=== PATIENT | female | born 1995 | race American Indian/Alaskan Native ===

== ENCOUNTER 2020-04-22 18:47 | Inpatient (IN) | payer MEDICAID, OTHER ==
[2020-04-22] MEDS ORDERED: OXYTOCIN 10 UNIT/1 ML INJ IM PRN (21:46)
[2020-04-22] MEDS ORDERED: METHYLERGONOVINE MALEATE 0.2 MG/ML VIAL IM PRN (21:46)
[2020-04-22] MEDS ORDERED: LIDOCAINE (2%) 20 MG/1 ML VIAL 20 ML MDV INFILTRATI ONE (21:46)
[2020-04-22] MEDS ORDERED: MINERAL OIL 30 ML ORAL LIQD PO PRN (21:46)
[2020-04-22] MEDS ORDERED: TERBUTALINE 1 MG/1 ML INJ SUB-Q PRN (21:46)
[2020-04-22] MEDS ORDERED: BUTORPHANOL 2 MG/1 ML INJ IV PRN (21:46)
[2020-04-22] MEDS ORDERED: ONDANSETRON 4 MG/2 ML INJ IV PRN (21:46)
[2020-04-22] MEDS ORDERED: NALOXONE 0.4 MG/1 ML INJ IV PRN (21:46)
[2020-04-22] MEDS ORDERED: ePHEDrine SULFATE 50 MG/1 ML INJ IV PRN (21:46)
[2020-04-22] MEDS ORDERED: PROMETHAZINE 25 MG TAB PO PRN (21:46)
[2020-04-22] MEDS ORDERED: fentaNYL 100 MCG/2 ML INJ IV PRN (21:46)
[2020-04-22 21:57] LABS: Hematocrit 33.1 % (30.3-42.9); Mean Corpuscular HGB Conc 33 % (30-34); Mean Corpuscular Volume 87 fl (79-97); Platelet Count 294 K/mm3 (140-440); Red Blood Count 3.82 M/mm3 (3.65-5.03); Red Cell Distribution Width 19.1 % (13.2-15.2)
[2020-04-22] MEDS ORDERED: OXYTOCIN DRIP 30 UNITS/500 ML BAG IV SCH (22:00)
[2020-04-22] MEDS ORDERED: LACTATED RINGERS 1,000 ML IV SCH (22:00)
[2020-04-23] MEDS: BUTORPHANOL 2 MG/1 ML INJ IV PRN ×2 (00:52→04:53)
--- NOTE | 2020-04-23 04:26 | History and Physical Report ---
History of Present Illness Date of examination: 04/23/20 Date of admission: 04/22/20 21:46 Chief complaint: Contractions History of present illness: Pt is a 24 yo at 39w3d EGA who presents reporting regular uterine contractions. She reports positive movement and denies LOF or vaginal bleeding. She has received care with [facility] since 11 weeks EGA. Her course has been complicated by iron-deficiency anemia, resolved with PO Fe. 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 She is GBS negative. Past History Past Medical History: no pertinent history Past Surgical History: no surgical history Family/Genetic History: hypertension, stroke, cancer Social history: no significant social history - Obstetrical History Expected Date of Delivery: 04/27/20 Actual Gestation: 39 Week(s) 3 Day(s) : 2 Para: 1 Hx # Term Pregnancies: 1 Number of Living Children: 1 Medications and Allergies Allergies Allergy/AdvReac Type Severity Reaction Status Date / Time No Known Allergies Allergy Verified 02/28/14 14:16 Active Meds: Active Medications Butorphanol Tartrate (Stadol) 1 mg IV Q2H PRN PRN Reason: Pain, Moderate(4-6) LABOR PAIN Butorphanol Tartrate (Stadol) 2 mg IV Q2H PRN PRN Reason: Pain , Severe (7-10) Last Admin: 04/23/20 00:52 Dose: 2 mg Documented by: Ephedrine Sulfate (Ephedrine Sulfate) 10 mg IV Q2M PRN PRN Reason: Hypotension Fentanyl (Sublimaze) 100 mcg IV Q2H PRN PRN Reason: Pain,Severe (7-10) LABOR PAIN Lactated Ringer's (Lactated Ringers) 1,000 mls @ 125 mls/hr IV DIRECT ABRAM Last Admin: 04/23/20 02:40 Dose: 1,125 mls/hr Documented by: Oxytocin/Sodium Chloride (Pitocin/Ns 30 Unit/500ml) 30 units in 500 mls @ 40 mls/hr IV TITR ABRAM; Protocol Methylergonovine Maleate (Methergine) 0.2 mg IM ONCE PRN PRN Reason: Uterine Bleeding Mineral Oil (Mineral Oil) 30 ml PO QHS PRN PRN Reason: Constipation Naloxone HCl (Naloxone) 0.1 mg IV Q2MIN PRN PRN Reason: Res Rate </= 8 or 02 SAT < 92% Ondansetron HCl (Zofran) 4 mg IV Q8H PRN PRN Reason: Nausea And Vomiting Oxytocin (Pitocin) 10 unit IM ONCE PRN PRN Reason: Uterine Bleeding Promethazine HCl (Phenergan) 25 mg PO Q6H PRN PRN Reason: Nausea And Vomiting Terbutaline Sulfate (Brethine) 0.25 mg SUB-Q ONCE PRN PRN Reason: Hyperstimulation/Hypertonicity Review of Systems All systems: negative Genitourinary: contractions, no vaginal bleeding, no leakage of fluid - Vital Signs Vital signs: Vital Signs Pulse Resp BP 98 H 12 106/60 04/22/20 19:24 04/22/20 19:24 04/22/20 19:24 Temp Pulse Resp BP Pulse Ox 85 12 97/56 99 04/23/20 04:09 04/22/20 19:24 04/23/20 03:01 04/23/20 04:09 - Physical Exam Lungs: Positive: Normal air movement Abdomen: Positive: soft. Negative: distention Genitourinary (Female): Positive: normal external genitalia. Negative: perineal/vulvar lesions Uterus: Positive: enlarged (gravid) - Obstetrical FHR: category 1 Uterine Contraction Monitor Mode: External Cervical Dilatation: 6 Cervical Effacement Percentage: 70 station: -2 Uterine Contraction Frequency (min): 5 Uterine Contraction Duration: 50 Uterine Contraction Pattern: Regular Uterine Tone Measurement Phase: Contraction Uterine Contraction Intensity: Strong/Firm Results Result Diagrams: 04/22/20 21:45 Abnormal lab results 04/22/20 Range/Units 21:45 RDW 19.1 H (13.2-15.2) % All other labs normal. Assessment and Plan A: 24 yo at 39w3d EGA Active labor GBS negative, membranes intact P: Admit to L&D AROM clear fluid at 0415 Pain relief as requested Anticipate
[2020-04-23] MEDS ORDERED: miSOPROStol 200 MCG TAB ONE (05:43)
--- NOTE | 2020-04-23 06:05 | Procedure Note ---
OB Delivery Note - Delivery Date of Delivery: 04/23/20 Surgeon: BENJAMÍN VAZQUEZ (MARK ANTHONY Joyce) Estimated blood loss: 200cc - Vaginal Delivery presentation: vertex Delivery position: OA Intrapartum events: PROM->1hr before delivery Delivery induction: none Delivery augmentation: rupture of membranes Delivery monitor: external FHT Route of delivery: Delivery placenta: spontaneous Delivery cord: 3 umbilical vessels Episiotomy: none Delivery laceration: none Anesthesia: intravenous Delivery comments: Excellent maternal effort progressed to of viable female infant over intact perineum at 0533. Head delivered OA, restituted LOT, shoulders followed easily. Infant to maternal abdomen. Apgars 8/9. Delayed cord clamping, cut by FOB. Placenta delivered spontaneously and intact, 3VC. 10 units IM Pitocin administered. EBL 200cc. No lacerations noted. Mother and cute infant bonding well, breast feeding. MARK ANTHONY Joyce - Infant A at 1 minute: 8 at 5 minutes: 9 Gender: Female
[2020-04-23] MEDS ORDERED: PROMETHAZINE 25 MG TAB PO PRN (06:06)
[2020-04-23] MEDS ORDERED: PROMETHAZINE 25 MG RECT SUPP PR PRN (06:06)
[2020-04-23] MEDS ORDERED: diphenhydrAMINE 25 MG CAP PO PRN (06:06)
[2020-04-23] MEDS ORDERED: LANOLIN/ZINC/DIMETHICONE (LANSINOH) 7 GM TP PRN (06:06)
[2020-04-23] MEDS ORDERED: WITCH HAZEL/ GLYCERIN PAD TP PRN (06:06)
[2020-04-23] MEDS ORDERED: MAGNESIUM HYDROXIDE (MOM) ORAL LIQD UDC PO PRN (06:06)
[2020-04-23] MEDS ORDERED: ONDANSETRON 4 MG/2 ML INJ IV PRN (06:06)
[2020-04-23] MEDS: IBUPROFEN 600 MG TAB PO SCH ×3 (10:15→22:09)
[2020-04-23 19:07] LABS: Hematocrit 30.2 % (30.3-42.9); Hemoglobin 10.3 gm/dl (10.1-14.3)
[2020-04-24] MEDS: IBUPROFEN 600 MG TAB PO SCH ×2 (05:09)
--- NOTE | 2020-04-24 07:57 | Progress Note ---
Assessment and Plan A: PPD#1 s/p at term P: Routine care Subjective - Subjective Date of service: 04/24/20 Principal diagnosis: s/p at term Interval history: No overnight events Patient reports: appetite normal, voiding normally, pain well controlled, ambulating normally [place]: doing well Objective - Vital Signs Latest vital signs: Vital Signs Temp Pulse Resp BP BP Pulse Ox 04/24/20 06:08 18 04/24/20 05:09 18 04/24/20 02:00 97.9 F 71 18 97/56 99 04/23/20 23:09 18 04/23/20 22:09 18 04/23/20 16:00 98.3 F 90 18 110/63 95 04/23/20 12:25 98 F 82 18 106/60 99 04/23/20 08:10 98.2 F 80 16 120/75 98 04/23/20 08:06 80 120/75 Intake and Output 04/23/20 04/24/20 04/24/20 22:59 06:59 14:59 Intake Total 480 360 Output Total 700 Balance -220 360 Intake: Oral 480 Intake, Free Water 360 Output: Urine 700 Void 700 Other: Total, Intake Amount 240 Total, Output Amount 300 # Voids Void 1 1 - Exam Breasts: Present: deferred Abdomen: Present: soft, distention (mild ) Uterus: Present: fundal height at umbilicus Extremities: Present: normal - Labs Labs: Abnormal lab results 04/23/20 Range/Units 18:40 Hct 30.2 L (30.3-42.9) %
--- NOTE | 2020-04-24 07:59 | Discharge Summary ---
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 Her course was uncomplicated and she met discharge criteria on PPD#1. She will follow up in 1 month with Benjamín Vazquez CNM. Condition at discharge: Stable Disposition: DC-01 TO HOME OR SELFCARE - Discharge Diagnoses (1) Term of female Status: Acute (2) Active labor at term Status: Acute Plan - Discharge Medications Prescriptions: Ibuprofen [Motrin] 800 mg PO Q8HR PRN #30 tablet PRN Reason: Pain, Moderate (4-6) - Provider Discharge Summary Activity: routine, no sex for 6 weeks, no heavy lifting 4 weeks, no strenuous exercise Diet: routine Instructions: routine Additional instructions: [] Smoking cessation referral if applicable(refer to patient education folder for contact #) [] Refer to [facility] Booklet Call your doctor immediately for: * Fever > 100.5 * Heavy vaginal bleeding ( >1 pad per hour) * Severe persistent headache * Shortness of breath * Reddened, hot, painful area to leg or breast * Drainage or odor from incision. * Keep incision clean and dry at all times and follow doctor's instructions regarding bathing/showering - Follow up plan Follow up: BENJAMÍN VAZQUEZ CNM [Advanced Practice Nurse] - 05/22/20 (Please call to schedule appt )
[2020-04-24] MEDS ORDERED: DOCUSATE SODIUM 100 MG CAP PO SCH (10:00)
[2020-04-24 13:11] VITALS: BP 109/67
== END 2020-04-24 16:17 | disposition home or self-care (01) | DRG 807 ==
LOC: TRG 18:47 → APU 18:56 → LD 21:46 → TRG 21:46 → OB 04-23 09:23
PROVIDERS: ADMIT Obstetrics & Gynecology; ATTEND Obstetrics & Gynecology
PROC: 10E0XZZ Delivery of Products of Conception, External Approach (ICD-10-PCS; principal; 2020-04-23)
DX: O62.9 Abnormality of forces of labor, unspecified (principal); Z37.0 Single live birth; O99.02 Anemia complicating childbirth; D50.9 Iron deficiency anemia, unspecified; Z3A.39 39 weeks gestation of pregnancy; Z20.828 Contact with and (suspected) exposure to other viral communicable diseases; Z82.3 Family history of stroke; Z82.49 Family history of ischemic heart disease and other diseases of the circulatory system
CPT/HCPCS: 36415; 59025; 85014; 85018; 85027; 86592; 86850; 86900; 86901; G0378; A6250; J0595; J2590; J7120; U0003-CS